=== PATIENT | female | born 1955 | race Caucasian/White ===

== ENCOUNTER 2022-01-17 18:14 | Inpatient (IN) | payer MEDICARE, BC ==
[~2022-01-17] VITALS: Ht 160 cm; Wt 60.5 kg
[2022-01-17 18:51] LABS: BASOPHILS # (AUTO) 0.1 X10'3 (0-0.2); BASOPHILS % (AUTO) 0.6 % (0-1); EOSINOPHILS % (AUTO) 0.4 % (0-6); HEMATOCRIT 39.9 % (35.0-45.0); HEMOGLOBIN 13.8 g/dl (12.0-16.0); LYMPHOCYTES # (AUTO) 2.7 X10'3 (1.1-4.8); LYMPHOCYTES % (AUTO) 28.6 % (21-51); MEAN CORPUSCULAR HEMOGLOBIN 30.2 PG (27.0-31.0); MEAN CORPUSCULAR HGB CONC 34.6 g/dL (33.0-36.5); MEAN CORPUSCULAR VOLUME 87.2 FL (78-98); MEAN PLATELET VOLUME 7.7 FL (7.4-10.4); MONOCYTES # (AUTO) 0.9 X10'3 (0-0.9); MONOCYTES % (AUTO) 9.7 % (2-12); NEUTROPHILS # (AUTO) 5.7 X10'3 (1.8-7.7); NEUTROPHILS % (AUTO) 60.7 % (42-75); PLATELET COUNT 374 X10'3 (140-440); RED BLOOD COUNT 4.58 X10'6 (4.20-5.60); WHITE BLOOD COUNT 9.5 X10'3 (4.5-11.0)
[2022-01-17 19:04] LABS: APTT 38 SECONDS (22-32)
[2022-01-17 19:06] LABS: ALANINE AMINOTRANSFERASE 33 U/L (12-78); ALBUMIN 4.2 G/DL (3.4-5.0); ALBUMIN/GLOBULIN RATIO 1.1 (1.1-1.5); ALKALINE PHOSPHATASE 68 IU/L (46-116); ANION GAP 14 (8-16); ASPARTATE AMINO TRANSFERASE 29 U/L (10-37); BILIRUBIN,TOTAL 0.3 MG/DL (0.1-1.0); BLOOD UREA NITROGEN 38 MG/DL (7-18); BUN/CREATININE RATIO 19.3 (6.6-38.0); CALCIUM 9.5 MG/DL (8.5-10.1); CHLORIDE 104 MMOL/L (99-107); CREATININE 1.97 MG/DL (0.40-0.90); GLUCOSE 99 MG/DL (70-104); POTASSIUM 3.8 MMOL/L (3.5-5.1); SODIUM 142 MMOL/L (135-145); TOTAL CARBON DIOXIDE 24.5 MMOL/L (24-32); TOTAL PROTEIN 7.9 G/DL (6.4-8.2); eGFR 25 ML/MIN
[2022-01-17] MEDS ORDERED: aspirin 81mg tab.chew PO ONE (19:20)
[2022-01-17] MEDS ORDERED: acetaminophen 650mg rectal suppository RC PRN (20:35)
[2022-01-17] MEDS ORDERED: diphenhydrAMINE 25mg capsule PO PRN (20:35)
[2022-01-17] MEDS ORDERED: acetaminophen 325mg tablet PO PRN ×2 (20:35)
[2022-01-17] MEDS ORDERED: mag hydrox/Alum hydrox/simeth 30ml oral suspension PO PRN (20:35)
[2022-01-17] MEDS ORDERED: ondansetron/PF 4mg/2ml inj IV PRN (20:35)
[2022-01-17] MEDS ORDERED: HYDROcodone/acetaminophen 5mg/325mg tablet PO PRN (20:35)
[2022-01-17] MEDS ORDERED: bisacodyl 10mg suppository rectal RC PRN (20:35)
[2022-01-17] MEDS ORDERED: diphenhydrAMINE 50 mg/ml inj IV PRN (20:35)
[2022-01-17] MEDS ORDERED: magnesium hydroxide 30ml (MOM) UD suspension PO PRN (20:35)
[2022-01-17] MEDS ORDERED: morphine 2 MG/ML inj. syringe IV PRN ×2 (20:35)
[2022-01-17] MEDS ORDERED: ondansetron 4mg rapidly disintigrating tab PO PRN (20:35)
[2022-01-17] MEDS: normal saline 1000ml 1,000 ML IV SCH (20:59)
[2022-01-17] MEDS ORDERED: temazepam 15mg capsule PO PRN (21:00)
[2022-01-17 21:15] LABS: HEMOGLOBIN A1C 6.1 % (4.5-6.2)
[2022-01-17 21:22] LABS: PHOSPHORUS 4.4 MG/DL (2.3-4.5)
[2022-01-17 21:45] LABS: CREATINE KINASE 190 U/L (26-192); LIPASE 81 U/L (73-393)
[2022-01-17 21:48] LABS: ETHANOL < 0.010 GM/DL (0.0-0.010)
[2022-01-17 22:53] LABS: CLARITY,URINE CLEAR (Clear); COLOR,URINE YELLOW (Yellow); GLUCOSE, URINE NEGATIVE (Neg); KETONES,URINE NEGATIVE (Neg); LEUKOCYTE ESTERASE ,URINE NEGATIVE (Neg); NITRITES, URINE NEGATIVE (Neg); OCCULT BLOOD,URINE NEGATIVE (Neg); PH,URINE 5.5 (4.8-8.0); PROTEIN,URINE NEGATIVE (Neg); UROBILINOGEN,URINE 0.2 E.U/dL (0.2-1.0)
--- NOTE | 2022-01-17 22:53 | NUR ---
Patient in room ORTH[facility] 4011. I have received report from Bee TELLEZ RN and had the opportunity to ask questions and assume patient care. Addendum: 01/18/22 at 0201 by Sarai Moreno RN Amended: Links added.
[2022-01-17 22:54] LABS: UA COLLECTION TYPE CLN CATCH MIDSTREAM
[2022-01-17 23:03] LABS: URINE AMPHETAMINE SCREEN NEGATIVE (Neg); URINE BARBITUATE SCREEN NEGATIVE (Neg); URINE BENZODIAZEPINES SCREEN NEGATIVE (Neg); URINE CANNABINOID SCREEN NEGATIVE (Neg); URINE COCAINE SCREEN NEGATIVE (Neg); URINE METHADONE SCREEN NEGATIVE (Neg); URINE OPIATE SCREEN NEGATIVE (Neg); URINE PHENCYCLIDINE SCREEN NEGATIVE (Neg)
[2022-01-17 23:10] VITALS: BP 126/60
--- NOTE | 2022-01-17 23:10 | NUR ---
Pt. arrived on the floor via garney from the ED. Pt. awake A & O and denies c/o pain at this time. No c/o chest pain or stroke like symptoms at this time. Oriented pt. to the surrounding. Call light within reach and bed in low position. Addendum: 01/18/22 at 0204 by Sarai Moreno RN Amended: Links added.
[2022-01-18] MEDS ORDERED: CLON0.1T PO (05:48)
[2022-01-18] MEDS ORDERED: METF-880 PO (05:48)
[2022-01-18] MEDS ORDERED: PROG200C11 PO (05:48)
[2022-01-18] MEDS ORDERED: THYR60TA2 PO (05:48)
[2022-01-18] MEDS ORDERED: POTA-192 PO (05:48)
[2022-01-18] MEDS ORDERED: TRIA1TAB5 PO (05:48)
[2022-01-18] MEDS ORDERED: CLON0.1T2 PO (05:48)
[2022-01-18] MEDS ORDERED: MINO100C66 PO (05:52)
[2022-01-18] MEDS ORDERED: ASPI-611 PO (05:52)
[2022-01-18] MEDS ORDERED: BUPR1FIL20 PO (05:52)
[2022-01-18] MEDS ORDERED: ARIP5TAB60 PO (05:52)
[2022-01-18] MEDS ORDERED: BUPR-317 PO (05:52)
--- NOTE | 2022-01-18 06:10 | NUR ---
Problems reprioritized. Patient report given, questions answered & plan of care reviewed with Carroll ALLRED . Addendum: 01/18/22 at 0636 by Sarai Moreno RN Amended: Links added.
[2022-01-18 06:11] LABS: BASOPHILS % (AUTO) 0.7 % (0-1); EOSINOPHILS # (AUTO) 0.1 X10'3 (0-0.9); HEMOGLOBIN 12.8 g/dl (12.0-16.0); LYMPHOCYTES # (AUTO) 2.3 X10'3 (1.1-4.8); LYMPHOCYTES % (AUTO) 34.2 % (21-51); MEAN CORPUSCULAR HEMOGLOBIN 29.1 PG (27.0-31.0); MEAN CORPUSCULAR HGB CONC 33.6 g/dL (33.0-36.5); MEAN CORPUSCULAR VOLUME 86.8 FL (78-98); MEAN PLATELET VOLUME 8.1 FL (7.4-10.4); MONOCYTES # (AUTO) 0.8 X10'3 (0-0.9); MONOCYTES % (AUTO) 12.5 % (2-12); NEUTROPHILS # (AUTO) 3.5 X10'3 (1.8-7.7); NEUTROPHILS % (AUTO) 51.6 % (42-75); PLATELET COUNT 327 X10'3 (140-440); RED BLOOD COUNT 4.38 X10'6 (4.20-5.60); RED CELL DISTRIBUTION WIDTH 13.8 % (11.5-14.5); WHITE BLOOD COUNT 6.8 X10'3 (4.5-11.0)
[2022-01-18 06:34] LABS: ALANINE AMINOTRANSFERASE 28 U/L (12-78); ALBUMIN 3.4 G/DL (3.4-5.0); ANION GAP 10 (8-16); ASPARTATE AMINO TRANSFERASE 26 U/L (10-37); BILIRUBIN,TOTAL 0.5 MG/DL (0.1-1.0); BLOOD UREA NITROGEN 29 MG/DL (7-18); BUN/CREATININE RATIO 18.8 (6.6-38.0); CALCIUM 8.8 MG/DL (8.5-10.1); CHLORIDE 107 MMOL/L (99-107); CHOLESTEROL 161 MG/DL (0-200); CREATININE 1.54 MG/DL (0.40-0.90); GLUCOSE 95 MG/DL (70-104); HDL CHOLESTEROL 79 MG/DL (35-60); LDL CHOLESTEROL 65 MG/DL (50-100); POTASSIUM 3.8 MMOL/L (3.5-5.1); SODIUM 142 MMOL/L (135-145); TOTAL CARBON DIOXIDE 24.9 MMOL/L (24-32); TOTAL PROTEIN 6.8 G/DL (6.4-8.2); TRIGLYCERIDES 37 MG/DL (20-135); eGFR 34 ML/MIN
--- NOTE | 2022-01-18 06:49 | NUR ---
Patient in room ORTHO 4011. I have received report from Sarai ALLRED and had the opportunity to ask questions and assume patient care.
[2022-01-18 07:01] LABS: ALKALINE PHOSPHATASE 50 IU/L (46-116)
[2022-01-18 07:15] VITALS: BP 114/56
[2022-01-18] MEDS ORDERED: pantoprazole 40mg Tablet.DR PO SCH (07:30)
[2022-01-18] MEDS ORDERED: docusate sod 100mg capsule PO SCH (08:00)
[2022-01-18] MEDS ORDERED: atorvastatin 20mg tablet PO SCH (08:00)
[2022-01-18] MEDS ORDERED: aspirin 81mg, enteric-coated 1 TAB TABLET.DR PO SCH (08:00)
[2022-01-18] MEDS: normal saline 1000ml 1,000 ML IV SCH (08:23)
[2022-01-18] MEDS ORDERED: buprenorphine/naloxone 8MG-2MG SUBlingual film SL SCH (09:10)
[2022-01-18 11:00] VITALS: BP 128/61
--- NOTE | 2022-01-18 12:43 | NUR ---
PAGER ID: [phone] MESSAGE: Carroll Antunez [phone] [id number] Patient is back from MRI and Patient would like to have a diet order added because she is hungry. They did bedside swallow last night she passed. Thanks Carroll.
[2022-01-18] MEDS ORDERED: CLOP75TA15 PO (14:18)
--- NOTE | 2022-01-18 15:20 | NUR ---
Patient discharged by another nurse. verbal instructions were given and IV taken out. patient educated on change in anticoagulant medications and walked out of the hospital with family at discharge.
--- NOTE | 2022-01-18 16:06 | NUR ---
PAGER ID: [phone] MESSAGE: Carroll Antunez [phone] re: ana Pimentel Patient states she cant take the Plavix because of her hormone therapy, I have her number if you need to contact her [phone]. Thanks Carroll
[2022-01-18] MEDS ORDERED: progesterone, micronized 100mg capsule PO SCH (21:00)
[2022-01-19] MEDS ORDERED: buproprion 150mg XL (24-hour) tablet PO SCH (08:00)
== END 2022-01-18 15:05 | disposition home or self-care (01) | DRG 69 ==
LOC: ER 18:16 → ED HOLD 20:40 → ORTHO 4S 23:04
PROVIDERS: ADMIT Family Medicine; ATTEND Family Medicine
DX: G45.9 Transient cerebral ischemic attack, unspecified (principal); N17.0 Acute kidney failure with tubular necrosis; R47.01 Aphasia; E06.3 Autoimmune thyroiditis; E11.22 Type 2 diabetes mellitus with diabetic chronic kidney disease; E86.0 Dehydration; R25.3 Fasciculation; R26.0 Ataxic gait; E86.1 Hypovolemia; I12.9 Hypertensive chronic kidney disease with stage 1 through stage 4 chronic kidney disease, or unspecified chronic kidney disease; R00.0 Tachycardia, unspecified; N18.9 Chronic kidney disease, unspecified; Z79.02 Long term (current) use of antithrombotics/antiplatelets; Z79.84 Long term (current) use of oral hypoglycemic drugs; Z79.890 Hormone replacement therapy; Z86.73 Personal history of transient ischemic attack (TIA), and cerebral infarction without residual deficits; Z87.891 Personal history of nicotine dependence; Z88.0 Allergy status to penicillin; Z91.040 Latex allergy status; Z79.899 Other long term (current) drug therapy; Z79.82 Long term (current) use of aspirin
CPT/HCPCS: 36415; 70450; 70544; 70547; 70551; 71045; 80053; 80061; 80305; 80320; 81003; 82550; 82948; 83036; 83690; 83735; 83880; 84100; 84439; 84443; 84480; 84484; 85025; 85610; 85730; 87081; 93005; 93306; 99285; A6258; G0378; J1200; J7030